=== PATIENT | female | born 1965 | race Caucasian/White ===

== ENCOUNTER 2017-03-13 07:11 | Day surgery (SDC) | payer BC ==
[~2017-03-13] VITALS: Ht 157.5 cm; Wt 79.0 kg
[2017-03-13 08:14] VITALS: Ht 157.5 cm; Wt 79.0 kg
[2017-03-13] MEDS ORDERED: METO25TA4 PO (08:39)
[2017-03-13] MEDS ORDERED: FER325 PO (08:39)
[2017-03-13] MEDS ORDERED: OMEP40CA6 PO (08:39)
[2017-03-13 08:43] VITALS: BP 171/81; PULSE 45; RESP 18
[2017-03-13] MEDS ORDERED: LIDOCAINE 2% (SDV) 5 ML INJ ONE (08:58)
[2017-03-13] MEDS ORDERED: PROPOFOL 40 ML ONE (08:58)
--- NOTE | 2017-03-13 09:38 | OPPN ---
Date/Time of Note Date/Time of Note DATE: 03/13/17 TIME: 09:36 Operative Report Preoperative Diagnosis Abdominal pain Iron deficiency anemia Postoperative Diagnosis Hiatal hernia and gastroesophageal reflux disease Bile reflux gastritis with erosions Gastric nodule on the antrum and biopsies were taken Sigmoid polyp was removed using biopsy forceps Internal hemorrhoids Operation/Procedure Performed Esophagogastroduodenoscopy and biopsy Colonoscopy and biopsy Surgeon see signature line operations and intelligence assistant None Anesthesia: MAC Estimated blood loss: none Transfusion Required none Specimen Small bowel biopsy Gastric nodule biopsy Sigmoid polyp biopsy Grafts/Implants none Complications none BETH ALANIZ MD Mar 13, 2017 09:38
--- NOTE | 2017-03-13 10:44 | GILP ---
DATE OF PROCEDURE: NAME OF PROCEDURES: 1. Esophagogastroduodenoscopy and biopsy. 2. Colonoscopy and biopsy. SURGEON: Beth Ponce MD PREOPERATIVE DIAGNOSES: 1. Abdominal pain. 2. Iron deficiency anemia. POSTOPERATIVE DIAGNOSES: 1. Hiatal hernia and gastroesophageal reflux disease. 2. Bile reflux gastritis with erosions. 3. Gastric nodule on antrum and biopsies were taken for histopathology. 4. Small bowel biopsies were taken to rule out celiac disease. 5. Colonoscopy all the way to the cecum. 6. Small sigmoid polyp was removed using biopsy forceps. 7. Internal hemorrhoids. INDICATION FOR THE PROCEDURE: Ms. Gloria Dalton is a 51-year-old female patient who had upper abdominal pain, not responding to therapy. The patient was also noted to have iron deficiency anemi a. She never had screening colonoscopy. The patient was scheduled for endoscopy and colonoscopy fo r further evaluation. The procedures and possible complications were well explained to the patient, she understood and con sented to the procedure. DESCRIPTION OF PROCEDURE: Under the influence of anesthesia, the gastroscope was carefully introduc ed into the esophagus and under direct vision it was advanced to the stomach and through the pylorus into the duodenal bulb and descending duodenum. FINDINGS: ESOPHAGUS: The patient had hiatal hernia and gastroesophageal reflux disease. STOMACH: She had gastritis with erosions. She had bile reflux. She had a prominent nodule in the gastric antrum and biopsies were taken for histopathology. DUODENUM: Normal. Small bowel biopsies were taken to rule out celiac disease. The colonoscope was carefully introduced in the rectum and under direct vision, it was advanced all the way to the cecum. FINDINGS: The patient had a small polyp in the sigmoid colon and it was removed using biopsy forcep s. She was noted to have internal hemorrhoids. She tolerated the procedures very well and there were no complication from the procedures. At the e nd of the procedures, she was awake with stable vital signs and she was discharged home to the care of her family. IMPRESSION: Please see postoperative diagnoses. PLAN: 1. Continue omeprazole. 2. Add Carafate 1 g p.o. t.i.d. a.c. 3. Await histopathology reports. 4. Screening colonoscopy in 10 years. Dictated By: BETH REHMAN/MELLISA Conf#: [id number] DID#: [id number]
== END 2017-03-13 10:49 | disposition home or self-care (01) ==
LOC: GIL 07:11
PROVIDERS: ATTEND Internal Medicine Gastroenterology
DX: D12.5 Benign neoplasm of sigmoid colon (principal); K29.50 Unspecified chronic gastritis without bleeding; K44.9 Diaphragmatic hernia without obstruction or gangrene; K64.8 Other hemorrhoids; I10 Essential (primary) hypertension; E78.5 Hyperlipidemia, unspecified
CPT/HCPCS: 43239; 45380; 84703; 88305; 88312; Z7610